=== PATIENT | female | born 1975 | race Caucasian/White ===

== ENCOUNTER 2018-04-13 15:45 | Emergency (ER) | payer BC ==
[~2018-04-13] VITALS: Ht 165.1 cm; Wt 97.5 kg
[~2018-04-13 15:45] MED LIST: AMBIEN 10 MG TA10 MG PO; BIRTH CONTROL; CELEXA 20 MG TA20 M1 PO; CLONAZEPAM 0.50.5 M1 PER TUBE; FLEXERIL PO; FLOMAX PO; HYTRIN 5 M5 MG/1 CA1 GT; IBUPROFEN 200200 M1 PO; IBUPROFEN 800800 M1 PO; LORTAB 5-500 T1 EAC1 PO; MACROBID 100 M100 M1 PO; NAPROSYN500 MG PO; NORCO 5-325 TA1 EACH PO; NORFLEX100 MG PO; OXYCODON-ACETA1 EAC1 PO; PERCOCET 5-3251 EACH PO; PHENERGAN 25 MG25 M1 PO; PROAIR HFA8.5 GM; PROMETHAZINE HC25 MG RECTAL; TORADOL 10 MG T10 MG PO; TRAMADOL 50 MG50 MG PO; XANAX 0.5 MG0.5 MG PO; ZOFRAN ODT4 MG PO
[2018-04-13] MEDS ORDERED: SUBOXONE 8 MG-1 EAC3 SUBLING (16:04)
[2018-04-13] MEDS ORDERED: ROBAXIN 750 MG750 MG PO (17:33)
[2018-04-13] MEDS ORDERED: NORCO 5-325 TA1 EACH PO (17:33)
[2018-04-13] MEDS ORDERED: NAPROSYN500 MG PO (17:33)
[2018-04-13 17:46] VITALS: BP 133/91
== END 2018-04-13 17:50 | disposition home or self-care (01) ==
LOC: ER 15:45
DX: S16.1XXA Strain of muscle, fascia and tendon at neck level, initial encounter (principal); S43.491A Other sprain of right shoulder joint, initial encounter; S70.02XA Contusion of left hip, initial encounter; J45.909 Unspecified asthma, uncomplicated; R10.31 Right lower quadrant pain; G89.29 Other chronic pain; G47.00 Insomnia, unspecified; Z88.8 Allergy status to other drugs, medicaments and biological substances; V78.5XXA Driver of bus injured in noncollision transport accident in traffic accident, initial encounter; Y93.89 Activity, other specified; Y92.89 Other specified places as the place of occurrence of the external cause; Y99.8 Other external cause status